=== PATIENT | female | born 1995 | race Caucasian/White ===

== ENCOUNTER 2016-11-20 16:50 | Emergency (ER) | payer MEDICAID ==
[2016-11-20 17:35] VITALS: BP 122/74
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
== END 2016-11-20 19:02 | disposition home or self-care (01) ==
LOC: JP.ED 16:50
DX: S90.32XA Contusion of left foot, initial encounter (principal); Z88.1 Allergy status to other antibiotic agents; Z88.5 Allergy status to narcotic agent; X50.1XXA Overexertion from prolonged static or awkward postures, initial encounter
CPT/HCPCS: 73620-LT; 99284

== ENCOUNTER 2017-05-06 15:44 | Emergency (ER) | payer MEDICAID ==
[2017-05-06 16:48] VITALS: BP 137/76
[2017-05-06] MEDS ORDERED: Ketorolac 30 MG/ML SDV IVPUSH ONE (17:09)
[2017-05-06] MEDS ORDERED: Ondansetron 4 MG/2 ML SDV IVPUSH ONE (17:09)
[2017-05-06] MEDS ORDERED: Sodium Chloride 0.9% 1,000 ML IV SCH (17:15)
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
== END 2017-05-06 18:22 | disposition home or self-care (01) ==
LOC: JP.ED 15:44
DX: G89.18 Other acute postprocedural pain (principal); G43.909 Migraine, unspecified, not intractable, without status migrainosus; R11.2 Nausea with vomiting, unspecified; Z98.890 Other specified postprocedural states; Z88.1 Allergy status to other antibiotic agents
CPT/HCPCS: 96361; 96374; 96375; 99283; J1885; J2405; J7040

== ENCOUNTER 2018-11-04 09:34 | Emergency (ER) | payer MEDICAID ==
[2018-11-04 10:06] VITALS: BP 133/86
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
[2018-11-04] MEDS ORDERED: cefTRIAXone 1 GM in Sodium Chloride 0.9% 50 ML IV ONE (10:32)
== END 2018-11-04 11:41 | disposition home or self-care (01) ==
LOC: JP.ED 09:34
DX: N39.0 Urinary tract infection, site not specified (principal); Z88.1 Allergy status to other antibiotic agents; Z88.6 Allergy status to analgesic agent
CPT/HCPCS: 81001; 81025; 87086; 87088; 87186; 96365; 99284; J0696; J7050

== ENCOUNTER 2021-08-03 20:16 | Emergency (ER) | payer OTHER ==
[2021-08-03 20:34] VITALS: BP 136/78; PULSE 75
[2021-08-03] MEDS ORDERED: Lidocaine 1% 20 ML MDV INJECT ONE (21:31)
[2021-08-03] MEDS ORDERED: Bacitracin Oint 1 GM U/D Packet TOP ONE (21:31)
== END 2021-08-03 22:23 | disposition home or self-care (01) ==
LOC: JP.ED 20:16
DX: S61.215A Laceration without foreign body of left ring finger without damage to nail, initial encounter (principal); Z88.0 Allergy status to penicillin; Z88.5 Allergy status to narcotic agent; Z86.16 Personal history of COVID-19; W25.XXXA Contact with sharp glass, initial encounter
CPT/HCPCS: 12002; 99281; 99282-25

== ENCOUNTER 2021-11-13 20:51 | Emergency (ER) | payer OTHER ==
[2021-11-13 21:19] VITALS: BP 121/75; PULSE 65
[2021-11-13] MEDS ORDERED: Sodium Chloride 0.9% 10 ML Syringe FLUSH PRN (21:40)
[2021-11-13] MEDS ORDERED: fentaNYL 50 MCG/ML SDV IVPUSH ONE (21:40)
[2021-11-13 21:55] LABS: ESTIMATED GFR 89 mL/min (>60)
[2021-11-13] MEDS ORDERED: Iopamidol 612 MG/ML 100 ML Bottle IV SCH (22:45)
[2021-11-13] MEDS ORDERED: Sodium Chloride 0.9% 75 ML IV SCH (22:45)
== END 2021-11-14 00:10 | disposition home or self-care (01) ==
LOC: JP.ED 20:51
DX: S92.515A Nondisplaced fracture of proximal phalanx of left lesser toe(s), initial encounter for closed fracture (principal); R10.11 Right upper quadrant pain; Z88.0 Allergy status to penicillin; Z88.5 Allergy status to narcotic agent; Z79.899 Other long term (current) drug therapy; Z86.16 Personal history of COVID-19; W22.8XXA Striking against or struck by other objects, initial encounter
CPT/HCPCS: 36415; 71260; 73660; 74177; 80053; 85025; 96374; 99284; J3010; J3490; Q9967